=== PATIENT | female | born 1985 | race Caucasian/White ===

== ENCOUNTER 2024-11-18 01:24 | Emergency (ER) | payer MEDICAID, OTHER ==
[~2024-11-18] VITALS: Ht 154.9 cm; Wt 81.0 kg
[2024-11-18 01:24] VITALS: BP 130/63; RESP 18; TEMP 98.1; O2SAT 100
[2024-11-18 01:54] LABS: Nucleated Red Blood Cells % 0.0 %
[2024-11-18 01:56] LABS: Hematocrit 34.6 % (36.0-46.0); Hemoglobin 11.5 g/dL (12.2-16.2); Mean Corpuscular Hemoglobin 26.0 pg (28.0-32.0); Mean Corpuscular Volume 78.5 fL (80.0-100.0)
[2024-11-18 02:13] LABS: Alanine Aminotransferase 22 U/L (7-40); Albumin 4.6 g/dL (3.2-4.8); Alkaline Phosphatase 103 U/L (46-116); Anion Gap 8 (5-15); BUN/Creatinine Ratio 21.1 (10.0-20.0); Blood Urea Nitrogen 12 mg/dL (9-23); Calcium 9.8 mg/dL (8.7-10.4); Carbon Dioxide 28 mmol/L (20-31); Chloride 105 mmol/L (98-107); Lipase 43 U/L (12-53); Potassium 3.6 mmol/L (3.5-5.1); Sodium 141 mmol/L (136-145); Total Protein 7.1 g/dL (5.7-8.2)
[2024-11-18 02:14] LABS: Bilirubin, Total 0.2 mg/dL (0.2-1.0); Glucose 113 mg/dL (74-106)
--- NOTE | 2024-11-18 02:44 | ED.PDOC ---
HPI Comments Patient states she started having midepigastric pain at approximate 12:30 a.m.. States the pain started to radiate to her back. Says the pain was so intense that started to take her breath away. States the pain is sharp in nature. Nothing makes it better, nothing makes it worse. States the last thing she ate was a banana. No prior cardiac history. States no new foods no new medications. Patient denies any fever chills denies any cough. Chief Complaint: Chest Pain Time Seen by MD: 01:33 Reviewed Notes: Nurses Notes Allergies: Coded Allergies: NO KNOWN ALLERGIES (Unverified , 11/18/24) Home Meds Active Scripts Omeprazole (Gnp Omeprazole) 20 Mg Tab, 1 TAB PO DAILY, #30 TAB 0 Refills Prov:MIKE HENNESSY 11/18/24 Information Source: Patient Mode of Arrival: Ambulatory Past Medical History PAST MEDICAL HISTORY: Denies Surgical History: Denies all surgeries JEWEL SORTER History: No Pertinent JEWEL SORTER History Constitutional: denies: chills, diaphoresis, fatigue, fever, malaise, sweats, weakness, others EENTM: denies: blurred vision, double vision, ear bleeding, ear discharge, ear drainage, ear pain, ear ringing, eye pain, eye redness, hearing loss, mouth pain, mouth swelling, nasal discharge, nose bleeding, nose congestion, nose pain, photophobia, tearing, throat pain, throat swelling, voice changes, others Respiratory: denies: cough, hemoptysis, orthopnea, SOB at rest, shortness of breath, SOB with excertion, stridor, wheezing, others Cardiovascular: reports: chest pain; denies: dizzy spells, diaphoresis, Dyspnea on exertion, edema, irregular heart beat, left arm pain, lightheadedness, palpitations, PND, syncope, others Gastrointestinal: reports: abdominal pain; denies: abdomen distended, blood streaked bowels, constipated, diarrhea, dysphagia, difficulty swallowing, hematemesis, melena, nausea, poor appetite, poor fluid intake, rectal bleeding, rectal pain, vomiting, others Genitourinary: denies: abnormal vagina bleeding, burning, dyspareunia, dysuria, flank pain, frequency, hematuria, incontinence, pain, , vagina discharge, urgency, others Neurological: denies: dizziness, fainting, headache, left sided numbness, left sided weakness, numbness, paresthesia, pre-existing deficit, right sided numbness, right sided weakness, seizure, speech problems, tingling, tremors, weakness, others Musculoskeletal: denies: back pain, gout, joint pain, joint swelling, muscle pain, muscle stiffness, neck pain, others Integumetry: denies: bruises, change in color, change in hair/nails, dryness, laceration, lesions, lumps, rash, wounds, others Allergic/Immunocompromised: denies: Difficulty Healing, Frequent Infections, Hives, Itching, others Hematologic/Lymphatic: denies: anemia, blood clots, easy bleeding, easy bruising, swollen glands, others Physical Exam General Appearance: No Apparent Distress, Normal HEENT: Normal ENT Inspection, Pharynx Normal, TMs Normal Neck: Full Range of Motion, Non-Tender, Normal, Normal Inspection Respiratory: Chest Non-Tender, Lungs Clear, No Accessory Muscle Use, No Respiratory Distress, Normal Breath Sounds Cardiovascular: No Edema, No JVD, No Murmur, No Gallop, Normal Peripheral Pulses, Regular Rate/Rhythm Breast Exam: Deferred Gastrointestinal: Epigastric (Tender to palpation, no rebound/guarding noted. No other tenderness to abdomen appreciated), No Organomegaly, No Pulsatile Mass, Normal Bowel Sounds, Soft Genitalia: Deferred Pelvic: Deferred Rectal: Deferred Extremities: No calf tenderness, Normal capillary refill, Normal inspection, Normal range of motion, Non-tender, No pedal edema Musculoskeletal : Apperance: Normal Neurologic: Alert, airline customer service agent II-XII nml as Tested, No Motor Deficits, Normal Affect, Normal Mood, No Sensory Deficits Cerebellar Function: Normal Reflexes: Normal Skin: Dry, Normal Color, Warm Lymphatic: No Adenopathy EKG EKG : Pulse Rate (adult): 67 Cardiac Rhythm: NSR (SR) Was a procedure done? Was a procedure done?: No CP Differential Dx Differential Diagnosis: A-Flutter, Angina, Anxiety / Panic Attack Differential Diagnosis: Esophageal reflux/spasm, Gastritis, Other (Cholecystitis) X-Ray, Labs, Meds, VS Vital Signs Date Time Temp Pulse Resp B/P (MAP) Pulse Ox O2 Delivery O2 Flow Rate FiO2 11/18/24 05:38 67 11/18/24 01:31 67 7/23/25 01:24 98.1 69 18 130/63 (85) 100 98.1 Lab Test 11/18/24 04:00 11/18/24 01:39 Range/Units Urine Color Light-yellow Yellow Urine Clarity Clear Clear Urine pH 5.5 5.0-9.0 Urine Specific [place] 1.030 1.001-1.035 Urine Protein 1+ H Negative Urine Ketones Negative Negative Urine Blood Negative Negative /uL Urine Nitrite Negative Negative Urine Bilirubin Negative Negative Urine Urobilinogen Normal Negative mg/dL Urine Leukocyte Esterase Negative Negative /uL Urine RBC None seen 0 - 4 /hpf Urine Microscopic WBC 1 0-5 /HPF Urine Squamous Epithelial Cells Few <5 /hpf Urine Bacteria None seen None Seen /hpf Urine Mucus Few None Seen Urine Glucose Normal Normal mg/dL Urine Test Negative Negative White Blood Count 13.1 H 4.4-10.8 10^3/uL Red Blood Count 4.41 4.0-5.20 10^6/uL Hemoglobin 11.5 L 12.2-16.2 g/dL Hematocrit 34.6 L 36.0-46.0 % Mean Corpuscular Volume 78.5 L 80.0-100.0 fL Mean Corpuscular Hemoglobin 26.0 L 28.0-32.0 pg Mean Corpuscular Hemoglobin Concent 33.1 32.0-36.0 g/dL Red Cell Distribution Width 16.1 H 11.8-14.3 % Platelet Count 267 140-450 10^3/uL Mean Platelet Volume 9.3 6.9-10.8 fL Neutrophils (%) (Auto) 53.3 37.0-80.0 % Lymphocytes (%) (Auto) 35.9 10.0-50.0 % Monocytes (%) (Auto) 5.7 0.0-12.0 % Eosinophils (%) (Auto) 4.1 0.0-7.0 % Basophils (%) (Auto) 1.0 0.0-2.0 % Neutrophils # (Auto) 7.0 1.6-8.6 10 ^3/uL Lymphocytes # (Auto) 4.7 0.4-5.4 10 ^3/uL Monocytes # (Auto) 0.7 0-1.3 10 ^3/uL Eosinophils # (Auto) 0.5 0-0.8 10 ^3/uL Basophils # (Auto) 0.1 0-0.2 10 ^3/uL Nucleated Red Blood Cells 0.0 % Sodium Level 141 136-145 mmol/L Potassium Level 3.6 3.5-5.1 mmol/L Chloride Level 105 98-107 mmol/L Carbon Dioxide Level 28 20-31 mmol/L Anion Gap 8 5-15 Blood Urea Nitrogen 12 9-23 mg/dL Creatinine 0.57 0.550-1.02 mg/dL Glomerular Filtration Rate Calc 118 >90 mL/min BUN/Creatinine Ratio 21.1 H 10.0-20.0 Serum Glucose 113 H 74-106 mg/dL Calcium Level 9.8 8.7-10.4 mg/dL Total Bilirubin 0.2 0.2-1.0 mg/dL Aspartate Amino Transferase (AST) 35 13-40 U/L Alanine Aminotransferase (ALT) 22 7-40 U/L Alkaline Phosphatase 103 46-116 U/L Troponin I High Sensitivity < 3 L </=34 ng/L Total Protein 7.1 5.7-8.2 g/dL Albumin 4.6 3.2-4.8 g/dL Lipase 43 12-53 U/L PATIENT: INES BUSTAMANTEACCT: [id number]: [id number] : 1985 LOC: ER ROOM / BED: / AGE / SEX: 39 / F ADM STATUS: REG ER SERVICE 0140 ORDERING PHYSICIAN: TEODORA AVITIA PROCEDURE(s): ABPL - CT AB PEL WO CON-NO ORAL OR IV REASON: epigastric pain ORDER NUMBER(s): [id number], ACCESSION NUMBER(s): [id number] EXAM: CT Abdomen and Pelvis Without Intravenous Contrast CLINICAL INDICATION: Pain TECHNIQUE: Axial computed tomography images of the abdomen and pelvis without intravenous contrast. This CT exam was performed using one or more of the following dose reduction techniques: automated exposure control, adjustment of the mA and/or kV according to patient size, and/or use of iterative reconstruction technique. COMPARISON: No relevant prior studies available. FINDINGS: LUNG BASES: Unremarkable. No mass. No consolidation. ABDOMEN: LIVER: Hepatomegaly with fatty infiltration. GALLBLADDER AND BILE DUCTS: Cholelithiasis. No ductal dilation. PANCREAS: Unremarkable. No ductal dilation. SPLEEN: Unremarkable. No splenomegaly. ADRENALS: Unremarkable. No mass. KIDNEYS AND URETERS: Unremarkable. No stones within either kidney. No hydronephrosis. STOMACH AND BOWEL: Fecal retention in the colon consistent with constipation. No obstruction. No mucosal thickening. PELVIS: APPENDIX: No findings to suggest acute appendicitis. BLADDER: Unremarkable. No stones. REPRODUCTIVE: 3.4 cm hypodense lesion right adnexa, likely an ovarian cyst. ABDOMEN and PELVIS: INTRAPERITONEAL SPACE: Unremarkable. No free air. No significant fluid collection. BONES/JOINTS: No acute fracture. No dislocation. SOFT TISSUES: Umbilical hernia containing fat. VASCULATURE: Unremarkable. No abdominal aortic aneurysm. LYMPH NODES: Unremarkable. No enlarged lymph nodes. IMPRESSION: 1. 3.4 cm hypodense lesion right adnexa, likely an ovarian cyst. 2. Hepatomegaly with fatty infiltration. 3. Cholelithiasis. 4. Fecal retention in the colon consistent with constipation. 5. Umbilical hernia containing fat. 6. No obstructive uropathy. ATED BY: OLIMPIA WILLS MD DICTATED DATE/TIME: 11/18/24503 SIGNED BY: OLIMPIA WILLS MD SIGNED DATE/TIME: 11/18/24503 CC: CBC reviewed-WBC 13.1 CMP reviewed without any significant abnormalities Troponin reviewed-normal Lipase reviewed-normal Urine reviewed-negative Urinalysis reviewed without any significant abnormalities EKG reviewed CT abdomen/pelvis without contrast reviewed Patient had improvement in symptoms, tolerating p.o. intake well, vitals stable, well appearing and denied any pain prior to discharge Diet education discussed Advised to follow up with PCP and tack puller in 1-2 days Patient verbalized understanding and agreeable with current plan of care Advised to return to ER immediately if symptoms worsen Images Reviewed?: Images reviewed and evaluated by me Time of 1ST Reevaluation: 02:42 Reevaluation 1ST: Unchanged Time of 2ND Reevaluation: 05:22 Reevaluation 2ND: Improved Patient Education/Counseling: Diagnosis, Treatment, Prognosis, Need For Follow Up Assigned to Dr. shea SEPSIS Sepsis Screen Date sepsis recognized/suspect: Nov 18, 2024 Time Sepsis recognized/suspect: 0124 Recent Procedure: No On Antibiotic Therapy: No Respiratory Rate >20: No Heart Rate >90: No Temp<36 C (96.8 F) or >38.3 C: No SBP <90 or MAP <65 mmHG: No New Acute Mental Status Change: No Is the patient on CPAP, BIPAP,: No Physician Orders Ct Ab Pel Wo Con-No Oral Or Iv (11/18/24 01:40) Electrocardigram (11/18/24 14:53) Vital Signs Date Time Temp Pulse Resp B/P (MAP) Pulse Ox O2 Delivery O2 Flow Rate FiO2 11/18/24 05:38 67 11/18/24 01:31 67 11/18/24 01:24 98.1 69 18 130/63 (85) 100 98.1 Laboratory Tests Test 11/18/24 01:39 White Blood Count 13.1 10^3/uL (4.4-10.8) H Departure 1 Departure Time of Disposition: 05:24 Impression: Primary Impression: Gastritis Qualified Codes: K29.00 - Acute gastritis without bleeding Disposition: 01 HOME / SELF CARE / HOMELESS Condition: Stable e-Prescriptions Omeprazole (Gnp Omeprazole) 20 Mg Tab 1 TAB PO DAILY, #30 TAB 0 Refills Prov: MIKE HENNESSY 11/18/24 Discharged With: Self Critical Care Note Critical Care Time?: No Stability Stability form required: No Heart Score Heart Score: Heart Score Response (Comments) Value History Slightly Suspicious 0 EKG Normal 0 Age <45 0 Risk Factors No known risk factors 0 Troponin Normal limit 0 Total 0 TEODORA AVITIA Nov 18, 2024 02:44 MIKE HENNESSY Nov 18, 2024 05:27
[2024-11-18 04:23] LABS: Urine Protein, UAD 1+ (Negative)
--- NOTE | 2024-11-18 05:07 | DVH ---
EXAM: CT Abdomen and Pelvis Without Intravenous Contrast CLINICAL INDICATION: Pain TECHNIQUE: Axial computed tomography images of the abdomen and pelvis without intravenous contrast. This CT exam was performed using one or more of the following dose reduction techniques: automated exposure control, adjustment of the mA and/or kV according to patient size, and/or use of iterative r econstruction technique. COMPARISON: No relevant prior studies available. FINDINGS: LUNG BASES: Unremarkable. No mass. No consolidation. ABDOMEN: LIVER: Hepatomegaly with fatty infiltration. GALLBLADDER AND BILE DUCTS: Cholelithiasis. No ductal dilation. PANCREAS: Unremarkable. No ductal dilation. SPLEEN: Unremarkable. No splenomegaly. ADRENALS: Unremarkable. No mass. KIDNEYS AND URETERS: Unremarkable. No stones within either kidney. No hydronephrosis. STOMACH AND BOWEL: Fecal retention in the colon consistent with constipation. No obstruction. No m ucosal thickening. PELVIS: APPENDIX: No findings to suggest acute appendicitis. BLADDER: Unremarkable. No stones. REPRODUCTIVE: 3.4 cm hypodense lesion right adnexa, likely an ovarian cyst. ABDOMEN and PELVIS: INTRAPERITONEAL SPACE: Unremarkable. No free air. No significant fluid collection. BONES/JOINTS: No acute fracture. No dislocation. SOFT TISSUES: Umbilical hernia containing fat. VASCULATURE: Unremarkable. No abdominal aortic aneurysm. LYMPH NODES: Unremarkable. No enlarged lymph nodes. IMPRESSION: 1. 3.4 cm hypodense lesion right adnexa, likely an ovarian cyst. 2. Hepatomegaly with fatty infiltration. 3. Cholelithiasis. 4. Fecal retention in the colon consistent with constipation. 5. Umbilical hernia containing fat. 6. No obstructive uropathy.
[2024-11-18] MEDS ORDERED: OMEP20TA PO (05:25)
[2024-11-18 05:38] VITALS: PULSE 67
--- NOTE | 2024-11-18 14:54 | ECG ---
[facility] Test Date: 2024-11-18 Test Time: 01:31:18 Pat Name: INES MUIR Department: ER Room: Gender: F Flight Attendant/Inflight Manager: SANJU : 1985 Requested By: MIKE HENNESSY Order Number: [id number] Reading MD: Yang Lowe Measurements Intervals [place] Rate: 67 P: 1 IA: 146 QRS: 47 QRSD: 102 T: 22 QT: 387 QTc: 409 Interpretive Statements Sinus rhythm RSR' in V1 or V2, right VCD or RVH Electronically Signed On 11-18-2024 17:02:50 PDT by Yang Lowe Please click the below link to view image of tracing.
== END 2024-11-18 05:42 | disposition home or self-care (01) ==
LOC: ER 01:24
DX: K29.70 Gastritis, unspecified, without bleeding (principal)
CPT/HCPCS: 36415; 74176; 80053; 81001; 81025; 83690; 84484; 85025; 93005

== ENCOUNTER 2024-12-12 03:47 | Inpatient (IN) | payer MEDICAID ==
[2024-12-12] VITALS (9 sets, daily range): BP systolic 105–125; BP diastolic 57–80; PULSE 59–65; RESP 15–18; TEMP 97.6–98.1; O2SAT 98–100
[~2024-12-12] VITALS: Ht 154.9 cm; Wt 85.9 kg
[~2024-12-12 03:47] MED LIST: OMEP20TA PO
--- NOTE | 2024-12-12 04:19 | ED.PDOC ---
GI ASSESSMENT HPI Comments 39-year-old female came to ER for abdominal pain. Patient does have history of gallstones. States about 2 hours ago she developed sudden onset sharp, constant epigastric abdominal pain, radiating to her back, associated with bouts of nausea and vomiting. Patient denies any history of abdominal surgeries Chief Complaint: Abdominal Pain Time Seen by MD: 04:19 Reviewed Notes: Nurses Notes Allergies: Coded Allergies: NO KNOWN ALLERGIES (Unverified , 11/18/24) Home Meds Active Scripts Omeprazole (Gnp Omeprazole) 20 Mg Tab, 1 TAB PO DAILY, #30 TAB 0 Refills Prov:MIKE HENNESSY 11/18/24 Information Source: Patient Mode of Arrival: Ambulatory Timing: Hours Duration: Since onset Quality: Sharp, Stabbing Vomitus: Watery Stool: Normal Severity: Moderate Recent: None Recent Hx of: None Pain Location: Epigastric Associated sign and symptoms: Nausea, Vomiting, Abdominal Pain Past Medical History PAST MEDICAL HISTORY: Gallstones Surgical History: Denies all surgeries SOFTWARE TEST ANALYST History: No Pertinent SOFTWARE TEST ANALYST History Constitutional: denies: chills, diaphoresis, fatigue, fever, malaise, sweats, weakness, others EENTM: denies: blurred vision, double vision, ear bleeding, ear discharge, ear drainage, ear pain, ear ringing, eye pain, eye redness, hearing loss, mouth pain, mouth swelling, nasal discharge, nose bleeding, nose congestion, nose pain, photophobia, tearing, throat pain, throat swelling, voice changes, others Respiratory: denies: cough, hemoptysis, orthopnea, SOB at rest, shortness of breath, SOB with excertion, stridor, wheezing, others Cardiovascular: denies: chest pain, dizzy spells, diaphoresis, Dyspnea on exertion, edema, irregular heart beat, left arm pain, lightheadedness, pal pitations, PND, syncope, others Gastrointestinal: reports: abdominal pain, nausea, vomiting; denies: abdomen distended, blood streaked bowels, constipated, diarrhea, dysphagia, difficulty swallowing, hematemesis, melena, poor appetite, poor fluid intake, rectal bleeding, rectal pain, others Genitourinary: denies: abnormal vagina bleeding, burning, dyspareunia, dysuria, flank pain, frequency, hematuria, incontinence, pain, , vagina discharge, urgency, others Neurological: denies: dizziness, fainting, headache, left sided numbness, left sided weakness, numbness, paresthesia, pre-existing deficit, right sided numbness, right sided weakness, seizure, speech problems, tingling, tremors, weakness, others Musculoskeletal: denies: back pain, gout, joint pain, joint swelling, muscle pain, muscle stiffness, neck pain, others Integumetry: denies: bruises, change in color, change in hair/nails, dryness, laceration, lesions, lumps, rash, wounds, others Allergic/Immunocompromised: denies: Difficulty Healing, Frequent Infections, Hives, Itching, others Hematologic/Lymphatic: denies: anemia, blood clots, easy bleeding, easy bruising, swollen glands, others Endocrine: denies: excessive hunger, excessive sweating, excessive thirst, excessive urination, flushing, intolerance to cold, intolerance to heat, unexplained weight gain, unexplained weight loss, others Psychiatric: denies: anxiety, bipolar disorder, depression, hopeless, panic disorder, schizophrenia, sleepless, suicidal, others Physical Exam General Appearance: No Apparent Distress, Normal HEENT: Normal ENT Inspection, Pharynx Normal, TMs Normal Neck: Full Range of Motion, Non-Tender, Normal, Normal Inspection Respiratory: Chest Non-Tender, Lungs Clear, No Accessory Muscle Use, No Respiratory Distress, Normal Breath Sounds Cardiovascular: No Edema, No JVD, No Murmur, No Gallop, Normal Peripheral Pulses, Regular Rate/Rhythm Breast Exam: Deferred Gastrointestinal: No Organomegaly, Non Tender, No Pulsatile Mass, Normal Bowel Sounds, Soft Genitalia: Deferred Pelvic: Deferred Rectal: Deferred Extremities: No calf tenderness, Normal capillary refill, Normal inspection, Normal range of motion, Non-tender, No pedal edema Musculoskeletal : Apperance: Normal Neurologic: Alert, measurement specialist II-XII nml as Tested, No Motor Deficits, Normal Affect, Normal Mood, No Sensory Deficits Cerebellar Function: Normal Reflexes: Normal Skin: Dry, Normal Color, Warm Lymphatic: No Adenopathy Was a procedure done? Was a procedure done?: No GI differential Dx Differential Diagnosis: Cholecystitis, Diverticular disease, Gastritis/PUD, Gastroenteritis, Hernia, Pancreatitis, UTI, Urolithiasis X-Ray, Labs, Meds, VS Vital Signs Date Time Temp Pulse Resp B/P (MAP) Pulse Ox O2 Delivery O2 Flow Rate FiO2 12/12/24 06:00 97.4 67 15 111/64 (80) 99 97.4 12/12/24 05:40 64 15 118/64 12/12/24 05:10 70 12 120/53 12/12/24 04:55 Room Air* 0 21 12/12/24 04:55 97.4 70 12 120/53 (75) 99 97.4 12/12/24 03:55 73 12/12/24 03:49 97.6 73 18 133/67 100 97.6 Lab Test 12/12/24 05:18 12/12/24 04:00 Range/Units Troponin I High Sensitivity < 3 L < 3 L </=34 ng/L White Blood Count 13.6 H 4.4-10.8 10^3/uL Red Blood Count 4.38 4.0-5.20 10^6/uL Hemoglobin 11.2 L 12.2-16.2 g/dL Hematocrit 34.7 L 36.0-46.0 % Mean Corpuscular Volume 79.3 L 80.0-100.0 fL Mean Corpuscular Hemoglobin 25.6 L 28.0-32.0 pg Mean Corpuscular Hemoglobin Concent 32.3 32.0-36.0 g/dL Red Cell Distribution Width 16.2 H 11.8-14.3 % Platelet Count 245 140-450 10^3/uL Mean Platelet Volume 9.5 6.9-10.8 fL Neutrophils (%) (Auto) 67.1 37.0-80.0 % Lymphocytes (%) (Auto) 23.9 10.0-50.0 % Monocytes (%) (Auto) 4.8 0.0-12.0 % Eosinophils (%) (Auto) 3.5 0.0-7.0 % Basophils (%) (Auto) 0.7 0.0-2.0 % Neutrophils # (Auto) 9.1 H 1.6-8.6 10 ^3/uL Lymphocytes # (Auto) 3.2 0.4-5.4 10 ^3/uL Monocytes # (Auto) 0.7 0-1.3 10 ^3/uL Eosinophils # (Auto) 0.5 0-0.8 10 ^3/uL Basophils # (Auto) 0.1 0-0.2 10 ^3/uL Nucleated Red Blood Cells 0.1 % Sodium Level 140 136-145 mmol/L Potassium Level 3.6 3.5-5.1 mmol/L Chloride Level 106 98-107 mmol/L Carbon Dioxide Level 26 20-31 mmol/L Anion Gap 8 5-15 Blood Urea Nitrogen 8 L 9-23 mg/dL Creatinine 0.75 0.550-1.02 mg/dL Glomerular Filtration Rate Calc 104 >90 mL/min BUN/Creatinine Ratio 10.7 10.0-20.0 Serum Glucose 124 H 74-106 mg/dL Calcium Level 9.2 8.7-10.4 mg/dL Total Bilirubin 0.3 0.2-1.0 mg/dL Aspartate Amino Transferase (AST) 81 H 13-40 U/L Alanine Aminotransferase (ALT) 37 7-40 U/L Alkaline Phosphatase 101 46-116 U/L Total Protein 7.2 5.7-8.2 g/dL Albumin 4.8 3.2-4.8 g/dL Lipase 42 12-53 U/L Current Medications Medications (Trade) Dose Ordered Sig/Kasia Route Start Time Stop Time Status Last Admin Ondansetron HCl (Zofran) 4 mg ONCE ONCE IV 12/12/24 04:15 12/12/24 04:18 DC 12/12/24 04:40 Hydromorphone HCl (Dilaudid Injection) 1 mg ONCE ONCE IV 12/12/24 04:15 12/12/24 04:18 DC 12/12/24 05:10 Ketorolac Tromethamine (Toradol Injection) 15 mg ONCE ONCE IV 12/12/24 04:30 12/12/24 04:31 DC 12/12/24 04:39 Sodium Chloride 1,000 ml @ 1,000 mls/hr Q1H ONCE IV 12/12/24 04:30 12/12/24 05:29 DC 12/12/24 04:40 X-Ray, Labs, Meds, VS Comment This 39-year-old female presents secondary abdominal pain. CT shows possible early cholecystitis. Patient will car her further workup including HIDA scan. Patient will be admitted for further workup management of her likely cholecystitis. Time of 1ST Reevaluation: 04:09 Reevaluation 1ST: Unchanged Patient Education/Counseling: Diagnosis, Treatment Family Education/Counseling: No Family Present SEPSIS Sepsis Screen Physician Orders Electrocardigram (12/12/24 04:07) Urinalysis (12/12/24 04:10) Ct Ab Pel Wo Con-No Oral Or Iv (12/12/24 05:22) Gallbladder (12/12/24 05:56) Vital Signs Date Time Temp Pulse Resp B/P (MAP) Pulse Ox O2 Delivery O2 Flow Rate FiO2 12/12/24 06:00 97.4 67 15 111/64 (80) 99 97.4 12/12/24 05:40 64 15 118/64 12/12/24 05:10 70 12 120/53 12/12/24 04:55 Room Air* 0 21 12/12/24 04:55 97.4 70 12 120/53 (75) 99 97.4 12/12/24 03:55 73 12/12/24 03:49 97.6 73 18 133/67 100 97.6 Laboratory Tests Test 12/12/24 04:00 White Blood Count 13.6 10^3/uL (4.4-10.8) H Medications Medications Dose Ordered Sig/Kasia Route Start Time Stop Time Status Last Admin Dose Admin Hydromorphone HCl 1 mg ONCE ONCE IV 12/12/24 04:15 12/12/24 04:18 DC 12/12/24 05:10 Ketorolac Tromethamine 15 mg ONCE ONCE IV 12/12/24 04:30 12/12/24 04:31 DC 12/12/24 04:39 Ondansetron HCl 4 mg ONCE ONCE IV 12/12/24 04:15 12/12/24 04:18 DC 12/12/24 04:40 Sodium Chloride 1,000 ml @ 1,000 mls/hr Q1H ONCE IV 12/12/24 04:30 12/12/24 05:29 DC 12/12/24 04:40 Departure 1 Departure Time of Disposition: 06:56 Impression: Primary Impression: Cholecystitis Disposition: 09 ADMITTED INPATIENT Admit to: Med Surg Condition: Fair Critical Care Note Critical Care Time?: No Stability Stability form required: No Heart Score Heart Score: Heart Score Response (Comments) Value History N/A 0 EKG N/A 0 Age N/A 0 Risk Factors N/A 0 Troponin N/A 0 Total 0 I personally scribed for TOMAS GARNICA MD ([email or web address]) on 12/12/24 at 04:19. Electronically submitted by Bob Simpson ([email or web address]). TOMAS GARNICA MD Dec 12, 2024 04:19 KHARI RAMIREZ MD Dec 12, 2024 06:57
[2024-12-12] MEDS: KETOROLAC TROMETH 30 MG/ML 1ML VIAL IV ONE (04:39)
[2024-12-12 04:40] LABS: Hematocrit 34.7 % (36.0-46.0); Hemoglobin 11.2 g/dL (12.2-16.2); Mean Corpuscular Hemoglobin 25.6 pg (28.0-32.0)
[2024-12-12] MEDS: SODIUM CHLORIDE 0.9% 1,000 ML IV ONE (04:40)
[2024-12-12] MEDS: ONDANSETRON HCL 4 MG/2 ML VIAL IV ONE (04:40)
[2024-12-12 04:42] LABS: Mean Corpuscular Volume 79.3 fL (80.0-100.0); Nucleated Red Blood Cells % 0.1 %
[2024-12-12 04:56] LABS: Alanine Aminotransferase 37 U/L (7-40); Alkaline Phosphatase 101 U/L (46-116); Anion Gap 8 (5-15); BUN/Creatinine Ratio 10.7 (10.0-20.0); Calcium 9.2 mg/dL (8.7-10.4); Carbon Dioxide 26 mmol/L (20-31); Chloride 106 mmol/L (98-107); Potassium 3.6 mmol/L (3.5-5.1); Sodium 140 mmol/L (136-145); Total Protein 7.2 g/dL (5.7-8.2)
[2024-12-12 04:57] LABS: Albumin 4.8 g/dL (3.2-4.8); Bilirubin, Total 0.3 mg/dL (0.2-1.0); Blood Urea Nitrogen 8 mg/dL (9-23); Glucose 124 mg/dL (74-106)
[2024-12-12 05:08] LABS: Lipase 42 U/L (12-53)
[2024-12-12] MEDS: HYDROmorphone HCL 2 MG/ML VL/or syr IV ONE (05:10)
[2024-12-12] MEDS: IOHEXOL 300 MG/ML 100ML BOTTLE IJ ONE (05:26)
--- NOTE | 2024-12-12 06:40 | DVH ---
EXAM: CT CT AB PEL WO CON-NO ORAL OR IV HISTORY: abdominal pain COMPARISON: CT CT AB PEL WO CON-NO ORAL OR IV on DOS: 11/18/24 TECHNIQUE: Helical CT images of the abdomen and pelvis were performed without IV contrast. Sagittal a nd coronal reformatted images were obtained. This CT exam was performed using one or more of the foll owing dose reduction techniques: Automated exposure control, adjustment of the mA and/or kv according to patient size, or the use of iterative reconstruction techniques. Radiation Dose: Abdomen/Pelvis: CTDIvol 18.98 mGy, DLP 1199.48 mGy*cm. FINDINGS: CT abdomen: The lung bases are clear. The heart is borderline enlarged. 3.9 cm lamellated gallstone i s identified in the gallbladder lumen. The gallbladder is hydropic, measuring 4 cm width x 10.7 cm le ngth. The liver measures 21 cm longitudinal. The noncontrast spleen, pancreas, kidneys, and adrenal g lands are unremarkable. No abdominal aortic aneurysm. CT pelvis: No abnormal bowel dilatation, free air, or free fluid. The appendix and urinary bladder ar e unremarkable. There is mild lumbar degenerative disc disease. There is a lumbosacral transitional vertebrae. IMPRESSION: 1. Cholelithiasis with gallbladder hydrops which may indicate acute cholecystitis. 2. Hepatomegaly. 3. No evidence of bowel obstruction, acute appendicitis, or other acute process in the abdomen or pel vis.
--- NOTE | 2024-12-12 07:48 | DVH ---
US GALLBLADDER HISTORY: RUQ pain COMPARISON: 12/12 TECHNIQUE: Transverse and longitudinal grayscale and color sonographic images were obtained of the ab domen. FINDINGS: Liver: - Size: 18.8 cm - Echogenicity: Hyperechoic - Surface Contour: Smooth - Liver Lesion(s): None - Portal Vein: Patent and forward flowing. - Bile Ducts: Normal. The common bile duct measures 4.6 mm. Gallbladder: Gallstone with distended gallbladder. The sonographic bryan sign is negative. Pancreas: Portions not obscured by bowel gas are normal. Kidneys: - Right kidney size: 11.0 cm. There is no hydronephrosis, renal calculi, or mass lesion. Aorta and Inferior Vena Cava: The visualized portions of the abdominal aorta and intrahepatic vena ca va are normal. Other: None IMPRESSION: Cholelithiasis with gallbladder distention. Hepatic steatosis.
--- NOTE | 2024-12-12 09:25 | DVHHPRES ---
History of Present Illness Resident Creating Document: EVA ROY RESIDENT History of Present Illness Ms Batista is a 39-year-old female with past medical history of cholelithiasis who presented to the ER with a chief complaint of severe intractable epigastric pain radiating to the back in the right shoulder starting typing checker 12/12, patient was also experiencing nausea and vomited 3 times, nonbloody, yellowish in color. Denies fever and chills, recent travel or any sick contacts. She had similar pain a month before when she came to visit the ER. Patient denies any chest pain/diarrhea or constipation/weight loss Past medical history: Cholelithiasis Past surgical history: None Home medications: None PCP: Dr. Mcgraw Allergic history: None Social history: Lives with in gravity, denies smoking/drinking/drug use Patient seen and examined in the ER. Has right upper quadrant mild tenderness. Surgical consultation, NPO, IV Zosyn started. Family History: None Smoke: No ALCOHOL: none Drugs: None Lives: with Family Review of Systems Gastrointestinal: Nausea, Vomiting, Abdominal Pain Allergies: Coded Allergies: NO KNOWN ALLERGIES (Unverified , 11/18/24) Exam Vital Signs Vital Signs Date Time Temp Pulse Resp B/P (MAP) Pulse Ox O2 Delivery O2 Flow Rate FiO2 12/12/24 09:00 97.7 54 15 105/61 (76) 99 97.7 12/12/24 04:55 Room Air* 0 21 General Appearance: Alert, Oriented X3, Cooperative, No acute distress HEENT: Atraumatic Respiratory: Clear to auscultation, Normal air movement Cardiovascular: Regular rate, Normal S1, Normal S2, No murmurs Abdominal: Normal bowel sounds, Soft, Other (Right upper quadrant tenderness) Extremities: No edema, Normal pulses, No tenderness/swelling Skin: No rashes, No breakdown Neuro: Normal gait, Normal speech, Strength at 5/5 X4 ext Psych/Mental Status: Mental status NL, Mood NL Labs/Xrays Labs Test 12/12/24 05:18 12/12/24 04:00 Range/Units Troponin I High Sensitivity < 3 L </=34 ng/L White Blood Count 13.6 H 4.4-10.8 10^3/uL Red Blood Count 4.38 4.0-5.20 10^6/uL Hemoglobin 11.2 L 12.2-16.2 g/dL Hematocrit 34.7 L 36.0-46.0 % Mean Corpuscular Volume 79.3 L 80.0-100.0 fL Mean Corpuscular Hemoglobin 25.6 L 28.0-32.0 pg Mean Corpuscular Hemoglobin Concent 32.3 32.0-36.0 g/dL Red Cell Distribution Width 16.2 H 11.8-14.3 % Platelet Count 245 140-450 10^3/uL Mean Platelet Volume 9.5 6.9-10.8 fL Neutrophils (%) (Auto) 67.1 37.0-80.0 % Lymphocytes (%) (Auto) 23.9 10.0-50.0 % Monocytes (%) (Auto) 4.8 0.0-12.0 % Eosinophils (%) (Auto) 3.5 0.0-7.0 % Basophils (%) (Auto) 0.7 0.0-2.0 % Neutrophils # (Auto) 9.1 H 1.6-8.6 10 ^3/uL Lymphocytes # (Auto) 3.2 0.4-5.4 10 ^3/uL Monocytes # (Auto) 0.7 0-1.3 10 ^3/uL Eosinophils # (Auto) 0.5 0-0.8 10 ^3/uL Basophils # (Auto) 0.1 0-0.2 10 ^3/uL Nucleated Red Blood Cells 0.1 % Sodium Level 140 136-145 mmol/L Potassium Level 3.6 3.5-5.1 mmol/L Chloride Level 106 98-107 mmol/L Carbon Dioxide Level 26 20-31 mmol/L Anion Gap 8 5-15 Blood Urea Nitrogen 8 L 9-23 mg/dL Creatinine 0.75 0.550-1.02 mg/dL Glomerular Filtration Rate Calc 104 >90 mL/min BUN/Creatinine Ratio 10.7 10.0-20.0 Serum Glucose 124 H 74-106 mg/dL Calcium Level 9.2 8.7-10.4 mg/dL Total Bilirubin 0.3 0.2-1.0 mg/dL Aspartate Amino Transferase (AST) 81 H 13-40 U/L Alanine Aminotransferase (ALT) 37 7-40 U/L Alkaline Phosphatase 101 46-116 U/L Total Protein 7.2 5.7-8.2 g/dL Albumin 4.8 3.2-4.8 g/dL Lipase 42 12-53 U/L SEPSIS Sepsis Screen Date sepsis recognized/suspect: Dec 12, 2024 Time Sepsis recognized/suspect: 454 Recent Procedure: No On Antibiotic Therapy: No Respiratory Rate >20: No Heart Rate >90: No Temp<36 C (96.8 F) or >38.3 C: No SBP <90 or MAP <65 mmHG: No New Acute Mental Status Change: No Is the patient on CPAP, BIPAP,: No Physician Orders Electrocardigram (12/12/24 04:07) Urinalysis (12/12/24 04:10) Ct Ab Pel Wo Con-No Oral Or Iv (12/12/24 05:22) Gallbladder (12/12/24 05:56) Vital Signs Date Time Temp Pulse Resp B/P (MAP) Pulse Ox O2 Delivery O2 Flow Rate FiO2 12/12/24 09:00 97.7 54 15 105/61 (76) 99 97.7 12/12/24 06:00 97.4 67 15 111/64 (80) 99 97.4 12/12/24 05:40 64 15 118/64 12/12/24 05:10 70 12 120/53 12/12/24 04:55 Room Air* 0 21 12/12/24 04:55 97.4 70 12 120/53 (75) 99 97.4 12/12/24 03:55 73 12/12/24 03:49 97.6 73 18 133/67 100 97.6 Laboratory Tests Test 12/12/24 04:00 White Blood Count 13.6 10^3/uL (4.4-10.8) H Medications Medications Dose Ordered Sig/Kasia Route Start Time Stop Time Status Last Admin Dose Admin Hydromorphone HCl 1 mg ONCE ONCE IV 12/12/24 04:15 12/12/24 04:18 DC 12/12/24 05:10 1 MG Ketorolac Tromethamine 15 mg ONCE ONCE IV 12/12/24 04:30 12/12/24 04:31 DC 12/12/24 04:39 15 MG Ondansetron HCl 4 mg ONCE ONCE IV 12/12/24 04:15 12/12/24 04:18 DC 12/12/24 04:40 4 MG Sodium Chloride 1,000 ml @ 1,000 mls/hr Q1H ONCE IV 12/12/24 04:30 12/12/24 05:29 DC 12/12/24 04:40 1,000 MLS/HR Assessment/Plan Assessment/Plan Acute calculous cholecystitis History of cholelithiasis IV Zosyn q.6 hourly IV LR 1 L Pain management with morphine and [place] Avoid ketorolac Surgical consultation pending CT shows cholelithiasis with gallbladder hydrops which may indicate acute cholecystitis. IV pantoprazole 40 mg daily Blood culture, lactic acid pending Anemia, mild, likely iron-deficiency Monitor Type and screen PT/PTT pending Transaminitis likely nonalcoholic liver disease Monitor Obesity A1c ordered, dietary and lifestyle modifications recommended DVT prophylaxis: Ambulatory Plan discussed with patient, in the ER in which all questions have been answered Goals of care discussed for more than 17 minutes, full code status Case discussed with Dr. Connolly Plan discussed with: Patient, Spouse Date of Service: Dec 12, 2024 Billing Provider: LESLY CONNOLLY MD Common Visit Codes: [id number] INP/OBS CARE (HIGH) EVA ROY RESIDENT Dec 12, 2024 09:25 LESLY CONNOLLY MD Dec 15, 2024 18:27
[2024-12-12] MEDS ORDERED: KETOROLAC TROMETH 30 MG/ML 1ML VIAL IV PRN (09:30)
[2024-12-12 09:49] LABS: Urine Protein, UAD 1+ (Negative)
[2024-12-12] MEDS: LACTATED RINGER'S 1,000 ML IV ONE (09:54)
[2024-12-12] MEDS: PANTOPRAZOLE 40 MG/10 ML VIAL INJ IV SCH (09:57)
[2024-12-12] MEDS ORDERED: ACETAMINOPHEN 500 MG TAB or CAP PO PRN (10:00)
--- NOTE | 2024-12-12 11:03 | DVHINCON2 ---
Date of service: Dec 12, 2024 Allergies: Coded Allergies: NO KNOWN ALLERGIES (Unverified , 11/18/24) Home Meds Active Scripts Omeprazole (Gnp Omeprazole) 20 Mg Tab, 1 TAB PO DAILY, #30 TAB 0 Refills Prov:MIKE HENNESSY 11/18/24 Current Medications Current Medications Medications (Trade) Dose Ordered Sig/Kasia Route PRN Reason Start Time Stop Time Status Last Admin Ketorolac Tromethamine (Toradol Injection) 15 mg Q6HPRN PRN IV SEVERE PAIN (7-10 PAIN SCALE) 12/12/24 09:30 12/12/24 09:57 DC Pantoprazole Sodium (Protonix) 40 mg DAILY IV 12/12/24 10:00 12/12/24 09:57 Piperacillin Sod/ Tazobactam Sod 100 ml @ 25 mls/hr Q6HR IV 12/12/24 12:00 Acetaminophen (Tylenol Tablet Or Capsule) 500 mg Q4HPRN PRN PO MILD PAIN (1-3 PAIN SCALE) 12/12/24 10:00 Acetaminophen/ Hydrocodone Bitart ([place] 5/325MG Tab) 1 tab Q6HPRN PRN PO MODERATE PAIN (4-6 PAIN SCALE) 12/12/24 10:00 Morphine Sulfate 1 mg Q4HPRN PRN IV SEVERE PAIN (7-10 PAIN SCALE) 12/12/24 10:00 Vital Signs Vital Signs Date Time Temp Pulse Resp B/P (MAP) Pulse Ox O2 Delivery O2 Flow Rate FiO2 12/12/24 09:00 65 16 100 Room Air* 0 21 12/12/24 09:00 97.7 105/61 (76) 97.7 Labs/Diagnostic Data Labs Test 12/12/24 10:12 12/12/24 09:35 12/12/24 05:18 12/12/24 04:00 Range/Units Urine Color Yellow Yellow Urine Clarity Ex.turbid Clear Urine pH 6.0 5.0-9.0 Urine Specific [place] 1.029 1.001-1.035 Urine Protein 1+ H Negative Urine Ketones Negative Negative Urine Blood Negative Negative /uL Urine Nitrite Negative Negative Urine Bilirubin Negative Negative Urine Urobilinogen Normal Negative mg/dL Urine Leukocyte Esterase Trace Negative /uL Urine RBC 4 0 - 4 /hpf Urine Microscopic WBC 15 H 0-5 /HPF Urine Squamous Epithelial Cells Few <5 /hpf Urine Bacteria Few H None Seen /hpf Urine Mucus Few None Seen Urine Glucose Normal Normal mg/dL Hemoglobin A1c 5.5 <5.7 % A1C Magnesium Level 1.7 1.6-2.6 mg/dL C-Reactive Protein High Sensitivity 0.92 <1.0 mg/dL Thyroid Stimulating Hormone (TSH) 1.44 0.55-4.78 uIU/mL White Blood Count 13.6 H 4.4-10.8 10^3/uL Red Blood Count 4.38 4.0-5.20 10^6/uL Hemoglobin 11.2 L 12.2-16.2 g/dL Hematocrit 34.7 L 36.0-46.0 % Mean Corpuscular Volume 79.3 L 80.0-100.0 fL Mean Corpuscular Hemoglobin 25.6 L 28.0-32.0 pg Mean Corpuscular Hemoglobin Concent 32.3 32.0-36.0 g/dL Red Cell Distribution Width 16.2 H 11.8-14.3 % Platelet Count 245 140-450 10^3/uL Mean Platelet Volume 9.5 6.9-10.8 fL Neutrophils (%) (Auto) 67.1 37.0-80.0 % Lymphocytes (%) (Auto) 23.9 10.0-50.0 % Monocytes (%) (Auto) 4.8 0.0-12.0 % Eosinophils (%) (Auto) 3.5 0.0-7.0 % Basophils (%) (Auto) 0.7 0.0-2.0 % Neutrophils # (Auto) 9.1 H 1.6-8.6 10 ^3/uL Lymphocytes # (Auto) 3.2 0.4-5.4 10 ^3/uL Monocytes # (Auto) 0.7 0-1.3 10 ^3/uL Eosinophils # (Auto) 0.5 0-0.8 10 ^3/uL Basophils # (Auto) 0.1 0-0.2 10 ^3/uL Nucleated Red Blood Cells 0.1 % Sodium Level 140 136-145 mmol/L Potassium Level 3.6 3.5-5.1 mmol/L Chloride Level 106 98-107 mmol/L Carbon Dioxide Level 26 20-31 mmol/L Anion Gap 8 5-15 Blood Urea Nitrogen 8 L 9-23 mg/dL Creatinine 0.75 0.550-1.02 mg/dL Glomerular Filtration Rate Calc 104 >90 mL/min BUN/Creatinine Ratio 10.7 10.0-20.0 Serum Glucose 124 H 74-106 mg/dL Calcium Level 9.2 8.7-10.4 mg/dL Total Bilirubin 0.3 0.2-1.0 mg/dL Aspartate Amino Transferase (AST) 81 H 13-40 U/L Alanine Aminotransferase (ALT) 37 7-40 U/L Alkaline Phosphatase 101 46-116 U/L Total Protein 7.2 5.7-8.2 g/dL Albumin 4.8 3.2-4.8 g/dL Lipase 42 12-53 U/L Assessment PATIENT IS A 39 YEAR OLD FEMALE WITH PREVIOUSLY ESTABLISHED DIAGNOSIS OF CHOLELITHIASIS ADMITTED THIS TIME WITH SEVERE UPPER RIGHT ABDOMINAL PAIN RADIATING TO MID BACK AND RIGHT SHOULDER, ABDOMEN OIS NON TENDER, NON DISTENDED, RADIOGRAPHIC DIAGNOSIS OF CHOLECYSTITIS IS REPORTED BASED ON HYDROPS OF GALLBLADDER, HER WBC IS ELEVATED, .COAGS AND PREG TESTS ARE PENDING. OPERATION, RISKS AND COMPLICATIONS EXPLAINED IN DETAIL Plan discussed with: Patient RAN JEAN MD Dec 12, 2024 11:03
[2024-12-12 11:07] LABS: INR 0.97 (0.9-1.15); Partial Thromboplastin Time 24.8 SEC (24.5-34.5); Prothrombin Time 10.3 sec (9.3-11.8)
[2024-12-12] MEDS: PIPERACILLIN-TAZOB 3.375GM 100 ML IV SCH (12:31)
[2024-12-12] MEDS: HYDROcodone-ACET 5/325MG TAB PO PRN (12:31)
[2024-12-12 14:37] LABS: Amphetamine Screen, Urine Neg (NEGATIVE); Barbiturate Scree,Urine Neg (NEGATIVE); Benzodiazephine Screen, Urine Neg (NEGATIVE); Cocaine Screen, Urine Neg (NEGATIVE); Opiate Scree,Urine Neg (NEGATIVE); Phencyclidine Screen, Urine Neg (NEGATIVE)
[2024-12-12 14:38] LABS: Cannabinoid Screen, Urine Neg (NEGATIVE)
[2024-12-12] MEDS: MORPHINE SULFATE INJ 2 MG/ml SYRG IV PRN (14:54)
[2024-12-13] VITALS (7 sets, daily range): BP systolic 90–124; BP diastolic 50–74; PULSE 60–66; RESP 17–20; TEMP 97.4–98.1; O2SAT 96–100
[2024-12-13 07:26] LABS: Hemoglobin 10.8 g/dL (12.2-16.2); Nucleated Red Blood Cells % 0.0 %
[2024-12-13 07:28] LABS: Hematocrit 32.7 % (36.0-46.0); Mean Corpuscular Hemoglobin 26.3 pg (28.0-32.0); Mean Corpuscular Volume 79.7 fL (80.0-100.0)
[2024-12-13 07:31] LABS: INR 0.98 (0.9-1.15); Partial Thromboplastin Time 24.8 SEC (24.5-34.5); Prothrombin Time 10.4 sec (9.3-11.8)
[2024-12-13 07:40] LABS: Alkaline Phosphatase 100 U/L (46-116); Anion Gap 9 (5-15); BUN/Creatinine Ratio 10.6 (10.0-20.0); Calcium 8.9 mg/dL (8.7-10.4); Carbon Dioxide 27 mmol/L (20-31); Chloride 107 mmol/L (98-107); Glucose 96 mg/dL (74-106); Potassium 3.8 mmol/L (3.5-5.1); Sodium 143 mmol/L (136-145); Total Protein 6.4 g/dL (5.7-8.2)
[2024-12-13 07:41] LABS: Albumin 4.2 g/dL (3.2-4.8); Bilirubin, Total 0.4 mg/dL (0.2-1.0)
[2024-12-13 07:47] LABS: Alanine Aminotransferase 139 U/L (7-40); Blood Urea Nitrogen 7 mg/dL (9-23)
--- NOTE | 2024-12-13 09:42 | DVHPN2 ---
Progress Note Date Seen: Dec 13, 2024 Medical Necessity Reason Pt with a Central, PICC or Fol: No Objective vital signs Vital Sign Date Time Temp Pulse Resp B/P (MAP) Pulse Ox O2 Delivery O2 Flow Rate FiO2 12/13/24 07:30 61 18 100 Room Air* 0 21 12/13/24 05:17 97.5 90/50 (63) 97.5 Total Intake and Output 12/12/24 12/12/24 12/13/24 15:00 23:00 07:00 Intake Total 0 ml 900 ml Output Total 500 ml Balance -500 ml 0 ml 900 ml medications Current Medications Medications Dose Ordered Sig/Kasia Route Start Time Stop Time Status Last Admin Dose Admin Pantoprazole Sodium 40 mg DAILY IV 12/12/24 10:00 12/12/24 09:57 40 MG Piperacillin Sod/ Tazobactam Sod 100 ml @ 25 mls/hr Q6HR IV 12/12/24 12:00 12/13/24 06:00 25 MLS/HR Acetaminophen 500 mg Q4HPRN PRN PO 12/12/24 10:00 Acetaminophen/ Hydrocodone Bitart 1 tab Q6HPRN PRN PO 12/12/24 10:00 12/12/24 22:54 1 TAB Morphine Sulfate 1 mg Q4HPRN PRN IV 12/12/24 10:00 12/12/24 14:54 1 MG laboratory and microbiology Laboratory Tests 12/13/24 06:06 Test 12/13/24 06:06 Range/Units Serum Glucose 96 74-106 mg/dL Problem List/Assessment/Plan Problem List/Assessment/Plan 12/13/24 PAIN IMPROVED, ALL QUESTIONS ANSWERED, OPERATION AND RISKS AND COMPLICATIONS EXPLAINED ONCE AGAIN Plan discussed with: Patient RAN JEAN MD Dec 13, 2024 09:41
--- NOTE | 2024-12-13 13:02 | DVHPN2 ---
Reviewed: Care Plan, H&P, Labs, Medications, Previous Orders, Radiology Changes from previous H/P or p: No Changes Gastrointestinal: Nausea, Vomiting, Abdominal Pain Objective Vitals Vital Signs Date Time Temp Pulse Resp B/P (MAP) Pulse Ox O2 Delivery O2 Flow Rate FiO2 12/13/24 09:00 97.9 60 20 105/57 (73) 99 97.9 12/13/24 07:30 Room Air* 0 21 Intake/Output Intake and Output 12/13/24 07:00 Intake Total 900 ml Output Total 500 ml Balance 400 ml Intake Oral 800 ml IV Total 100 ml Output Urine Total 500 ml # Voids 4 Medications Current Medications Medications Dose Ordered Sig/Kasia Route Start Time Stop Time Status Last Admin Dose Admin Pantoprazole Sodium 40 mg DAILY IV 12/12/24 10:00 12/13/24 11:59 40 MG Piperacillin Sod/ Tazobactam Sod 100 ml @ 25 mls/hr Q6HR IV 12/12/24 12:00 12/13/24 11:59 25 MLS/HR Acetaminophen 500 mg Q4HPRN PRN PO 12/12/24 10:00 Acetaminophen/ Hydrocodone Bitart 1 tab Q6HPRN PRN PO 12/12/24 10:00 12/12/24 22:54 1 TAB Morphine Sulfate 1 mg Q4HPRN PRN IV 12/12/24 10:00 12/12/24 14:54 1 MG Laboratory Results Laboratory Tests 12/13/24 06:06 Chemistry Test 12/13/24 06:06 Albumin 4.2 g/dL (3.2-4.8) Calcium Level 8.9 mg/dL (8.7-10.4) Total Protein 6.4 g/dL (5.7-8.2) Coagulation Test 12/13/24 06:06 Prothrombin Time 10.4 sec (9.3-11.8) Prothrombin Time INR 0.98 (0.9-1.15) Activated Partial Thromboplast Time 24.8 SEC (24.5-34.5) LFT Test 12/13/24 06:06 Alanine Aminotransferase (ALT) 139 U/L (7-40) H Alkaline Phosphatase 100 U/L (46-116) Aspartate Amino Transferase (AST) 105 U/L (13-40) H Total Bilirubin 0.4 mg/dL (0.2-1.0) Urinalysis Test 12/12/24 09:35 Urine Color Yellow (Yellow) Urine Clarity Ex.turbid (Clear) Urine pH 6.0 (5.0-9.0) Urine Specific [place] 1.029 (1.001-1.035) Urine Protein 1+ (Negative) H Urine Ketones Negative (Negative) Urine Blood Negative /uL (Negative) Urine Nitrite Negative (Negative) Urine Bilirubin Negative (Negative) Urine Urobilinogen Normal mg/dL (Negative) Urine Leukocyte Esterase Trace /uL (Negative) Urine RBC 4 /hpf (0 - 4) Urine Microscopic WBC 15 /HPF (0-5) H Urine Squamous Epithelial Cells Few /hpf (<5) Urine Bacteria Few /hpf (None Seen) H Urine Mucus Few (None Seen) Urine Glucose Normal mg/dL (Normal) Labs and/or images reviewed: Labs reviewed by me, Image(s) reviewed by me Assessment/Plan Assessment/Plan Acute right upper quadrant abdominal pain Cholelithiasis with acute cholecystitis: Dr. Harrison planning for lap rosy: Max Hahtaway Acute dehydration: IV fluids MAGALYS Pepe at bed side. Plan discussed with: Patient Date of Service: Dec 13, 2024 Billing Provider: RICARDA EDWARD MD Common Visit Codes: [id number] INP/OBS CARE(HIGH) RICARDA EDWARD MD Dec 13, 2024 13:02
[2024-12-14] VITALS (8 sets, daily range): BP systolic 111–128; BP diastolic 64–84; PULSE 60–74; RESP 16–19; TEMP 96.7–98.4; O2SAT 93–99
[2024-12-14] MEDS: PIPERACILLIN-TAZOB 3.375GM 100 ML IV SCH (01:37)
[2024-12-14] MEDS ORDERED: MIDAZOLAM HCL 2MG/2ML 2ml VIAL (1mg/ml) ONE (07:50)
[2024-12-14] MEDS ORDERED: HYDROmorphone HCL 2 MG/ML VL/or syr ONE (07:50)
[2024-12-14] MEDS ORDERED: PROPOFOL 10 MG/ML 20 ML IV ONE (07:50)
[2024-12-14] MEDS ORDERED: LIDOCAINE 2% (LOCAL ANESTH.) PF 5ml SDV ONE (07:50)
[2024-12-14] MEDS ORDERED: ONDANSETRON HCL 4 MG/2 ML VIAL ONE (07:50)
[2024-12-14] MEDS ORDERED: PHENYLEPHRINE HCL 10 MG/ML VL ONE (07:50)
[2024-12-14] MEDS ORDERED: ROCURONIUM 10MG/ML 10ML VIAL IV ONE (07:50)
[2024-12-14] MEDS ORDERED: GLYCOPYRROLATE 0.2 MG/ML 1ML VIAL ONE (07:50)
[2024-12-14] MEDS ORDERED: fentaNYL CITRATE 100 MCG/2 ML VL ONE (07:50)
[2024-12-14] MEDS ORDERED: KETOROLAC TROMETH 30 MG/ML 1ML VIAL ONE (07:50)
[2024-12-14] MEDS: ceFAZolin 2 GM/D5W50ml 50 ML IV ONE (08:19)
[2024-12-14] MEDS: LIDOCAINE 1%-Mpf/Epinephrine 1:200,000 30ml VIAL ONE (08:57)
[2024-12-14] MEDS: BUPIVACAINE 0.5% MPF INJ 30ML SDV IJ ONE (08:57)
[2024-12-14] MEDS ORDERED: SUGAMMADEX 200mg/2ml Vial (100MG/ML) IV ONE (09:14)
--- NOTE | 2024-12-14 09:27 | DVHPN2 ---
Reviewed: Care Plan, H&P, Labs, Medications, Previous Orders, Radiology Changes from previous H/P or p: No Changes Gastrointestinal: Nausea, Vomiting, Abdominal Pain Objective Vitals Vital Signs Date Time Temp Pulse Resp B/P (MAP) Pulse Ox O2 Delivery O2 Flow Rate FiO2 12/14/24 05:00 97.9 65 17 121/73 (89) 97 97.9 12/13/24 20:00 Room Air* 0 21 Intake/Output Intake and Output 12/14/24 07:00 Intake Total 1410 ml Balance 1410 ml Intake Oral 1110 ml IV Total 300 ml # Voids 6 Medications Current Medications Medications Dose Ordered Sig/Kasia Route Start Time Stop Time Status Last Admin Dose Admin Pantoprazole Sodium 40 mg DAILY IV 12/12/24 10:00 12/13/24 11:59 40 MG Acetaminophen 500 mg Q4HPRN PRN PO 12/12/24 10:00 Acetaminophen/ Hydrocodone Bitart 1 tab Q6HPRN PRN PO 12/12/24 10:00 12/13/24 18:23 1 TAB Morphine Sulfate 1 mg Q4HPRN PRN IV 12/12/24 10:00 12/12/24 14:54 1 MG Piperacillin Sod/ Tazobactam Sod 100 ml @ 25 mls/hr Q8H IV 12/14/24 02:00 12/14/24 01:37 25 MLS/HR Laboratory Results Laboratory Tests 12/13/24 06:06 Urinalysis Test 12/12/24 09:35 Urine Color Yellow (Yellow) Urine Clarity Ex.turbid (Clear) Urine pH 6.0 (5.0-9.0) Urine Specific [place] 1.029 (1.001-1.035) Urine Protein 1+ (Negative) H Urine Ketones Negative (Negative) Urine Blood Negative /uL (Negative) Urine Nitrite Negative (Negative) Urine Bilirubin Negative (Negative) Urine Urobilinogen Normal mg/dL (Negative) Urine Leukocyte Esterase Trace /uL (Negative) Urine RBC 4 /hpf (0 - 4) Urine Microscopic WBC 15 /HPF (0-5) H Urine Squamous Epithelial Cells Few /hpf (<5) Urine Bacteria Few /hpf (None Seen) H Urine Mucus Few (None Seen) Urine Glucose Normal mg/dL (Normal) Microbiology Microbiology Date/Time Source Procedure Growth Status 12/12/24 13:38 Blood Blood Culture - Preliminary NO GROWTH AFTER 24 HOURS OF INCUBATION. Resulted Labs and/or images reviewed: Labs reviewed by me, Image(s) reviewed by me Assessment/Plan Assessment/Plan Acute right upper quadrant abdominal pain Cholelithiasis with acute cholecystitis: Status post lap rosy by Dr. Harrison 12/14/2024, continue Zosyn norco Acute dehydration: IV fluids MAGALYS Pepe at bed side. Plan discussed with: Patient Date of Service: Dec 14, 2024 Billing Provider: RICARDA EDWARD MD Common Visit Codes: [id number] INP/OBS CARE(HIGH) RICARDA EDWARD MD Dec 14, 2024 09:27
[2024-12-14] MEDS: ONDANSETRON HCL 4 MG/2 ML VIAL IV ONE (09:45)
--- NOTE | 2024-12-14 09:46 | DVHOP ---
DATE OF SURGERY: 12/14/2024 PREOPERATIVE DIAGNOSES: * Cholelithiasis. * Cholecystitis POSTOPERATIVE DIAGNOSES: * Cholelithiasis * Cholecystitis SURGEON: Joe Harrison MD FIRE OFFICER: Carlos Enrique Shay NP ANESTHESIA: General endotracheal. ANESTHESIOLOGIST: Dr. Steele PROCEDURES: * Laparoscopy * Laparoscopic cholecystectomy DESCRIPTION OF PROCEDURE: Under general endotracheal anesthesia with the patient's skin prepped and draped, 0.25% Marcaine and 0.5% lidocaine were injected into the skin at the proposed incision site. A supraumbilical incision was made and Veress needle inserted by the hanging drop technique into the peritoneal cavity in order to establish pneumoperitoneum to 15 mmHg pressure by insufflation with carbon dioxide. With the abdomen fully distended, the needle was removed and replaced with a 5-mm trocar port through which a 0-degree viewing laparoscope was inserted and under direct vision, a 5-mm port was inserted through the right anterior axillary line at the level of the umbilicus and a 10-mm port was inserted through the midline subxiphoid skin. Subsequently, instrumentation was introduced and laparoscopy was performed revealing no obvious unexpected pathology. The gallbladder was acutely and chronically inflamed. Adhesions between the omentum and the gallbladder was accomplished sharply and bluntly and the gallbladder was mobilized. The cystic duct and cystic artery were identified, circumferentially dissected, skeletonized, and traced into the hepatocystic triangle just to minimize the potential for inadvertent injury to the common bile duct. The cystic duct and cystic artery were divided between metallic clips close to the gallbladder, again attempting to avoid any inadvertent injury to the common bile duct with the cystic duct and cystic artery divided between metallic clips, the gallbladder was resected from the liver bed by electrocautery and traction. The fully mobilized gallbladder was then removed from the peritoneal cavity by placement in a specimen extraction bag, placed through the 10-mm port sites, and removed from the peritoneal cavity by extraction. Subhepatic space was irrigated. Irrigant was aspirated. A subhepatic Kelvin-Bates drain was placed underneath the right lobe of the liver and exteriorized through the 5-mm port site in the right flank, secured with a 2-0 nylon suture. The right upper quadrant was irrigated. Irrigant was aspirated. Inspection for hemostasis was accomplished and hemostasis was found to be complete at the port sites as well as in the hepatic bed of the gallbladder. Instrumentation was then withdrawn. Pneumoperitoneum was evacuated. Fascial defect was closed using #0 Vicryl. Wounds were approximated using 2-0 Monocryl sutures, Dermabond glue, and Steri-Strips. The patient remained stable throughout the procedure and left the operating room following an accurate needle and sponge count. The patient's was thoroughly informed by phone at [phone]. MD CRISTOBLA Chance/ALEXANDRU TID: [id number] RECEIPT: [id number]
[2024-12-14] MEDS: HYDROmorphone HCL 2 MG/ML VL/or syr IV PRN (09:55)
[2024-12-14] MEDS: HYDROmorphone HCL 2 MG/ML VL/or syr ONE (09:58)
[2024-12-14] MEDS: ACETAMINOPHEN IV 1000 MG/100ML (10MG/ML) IV ONE (10:09)
--- NOTE | 2024-12-14 10:26 | ECG ---
[facility] Test Date: 2024-12-12 Test Time: 03:55:00 Pat Name: INES MUIR Department: Room: 0220 A Gender: F Fiberglass Fabricator: THOMAS : 1985 Requested By: TOMAS GARNICA Order Number: [id number] Reading MD: Yang Lowe Measurements Intervals [place] Rate: 73 P: 14 CT: 138 QRS: 42 QRSD: 101 T: 23 QT: 387 QTc: 427 Interpretive Statements Sinus rhythm Electronically Signed On 12-14-2024 22:52:47 PDT by Yang Lowe Please click the below link to view image of tracing.
[2024-12-14] MEDS: D5W/SOD CHL 0.45%/KCL 20MEQ 1,000 ML IV SCH (10:55)
[2024-12-14] MEDS: ONDANSETRON HCL 4 MG/2 ML VIAL IV PRN (18:16)
[2024-12-15] VITALS (8 sets, daily range): BP systolic 94–124; BP diastolic 55–84; PULSE 63–77; RESP 17–18; TEMP 97.2–98.1; O2SAT 92–96
[2024-12-15 06:31] LABS: Hematocrit 30.2 % (36.0-46.0); Hemoglobin 10.0 g/dL (12.2-16.2); Mean Corpuscular Hemoglobin 26.1 pg (28.0-32.0); Mean Corpuscular Volume 79.2 fL (80.0-100.0); Nucleated Red Blood Cells % 0.0 %
--- NOTE | 2024-12-15 10:00 | DVHPN2 ---
Reviewed: Care Plan, H&P, Labs, Medications, Previous Orders, Radiology Changes from previous H/P or p: No Changes Gastrointestinal: Nausea, Vomiting, Abdominal Pain Objective Vitals Vital Signs Date Time Temp Pulse Resp B/P (MAP) Pulse Ox O2 Delivery O2 Flow Rate FiO2 12/15/24 08:50 97.9 63 17 102/57 (72) 95 97.9 12/15/24 08:00 Room Air* 0 21 Intake/Output Intake and Output 12/15/24 07:00 Intake Total 1930 ml Output Total 60 ml Balance 1870 ml Intake Oral 1630 ml IV Total 300 ml Drainage Total 60 ml # Voids 8 Medications Current Medications Medications Dose Ordered Sig/Kasia Route Start Time Stop Time Status Last Admin Dose Admin Pantoprazole Sodium 40 mg DAILY IV 12/12/24 10:00 12/14/24 11:30 40 MG Acetaminophen 500 mg Q4HPRN PRN PO 12/12/24 10:00 Acetaminophen/ Hydrocodone Bitart 1 tab Q6HPRN PRN PO 12/12/24 10:00 12/15/24 02:51 1 TAB Morphine Sulfate 1 mg Q4HPRN PRN IV 12/12/24 10:00 12/14/24 23:18 1 MG Piperacillin Sod/ Tazobactam Sod 100 ml @ 25 mls/hr Q8H IV 12/14/24 02:00 12/15/24 02:01 25 MLS/HR Potassium Chloride/Dextrose/ Sod Cl 1,000 ml @ 120 mls/hr Q8H20M IV 12/14/24 09:30 12/15/24 02:10 120 MLS/HR Ondansetron HCl 4 mg Q4HPRN PRN IV 12/14/24 09:30 12/14/24 23:18 4 MG Laboratory Results Laboratory Tests 12/13/24 06:06 12/15/24 05:34 LFT Test 12/15/24 05:34 Total Bilirubin 0.4 mg/dL (0.2-1.0) Urinalysis Test 12/12/24 09:35 Urine Color Yellow (Yellow) Urine Clarity Ex.turbid (Clear) Urine pH 6.0 (5.0-9.0) Urine Specific [place] 1.029 (1.001-1.035) Urine Protein 1+ (Negative) H Urine Ketones Negative (Negative) Urine Blood Negative /uL (Negative) Urine Nitrite Negative (Negative) Urine Bilirubin Negative (Negative) Urine Urobilinogen Normal mg/dL (Negative) Urine Leukocyte Esterase Trace /uL (Negative) Urine RBC 4 /hpf (0 - 4) Urine Microscopic WBC 15 /HPF (0-5) H Urine Squamous Epithelial Cells Few /hpf (<5) Urine Bacteria Few /hpf (None Seen) H Urine Mucus Few (None Seen) Urine Glucose Normal mg/dL (Normal) Microbiology Microbiology Date/Time Source Procedure Growth Status 12/12/24 13:38 Blood Blood Culture - Preliminary NO GROWTH AFTER 48 HOURS OF INCUBATION. Resulted Labs and/or images reviewed: Labs reviewed by me, Image(s) reviewed by me Assessment/Plan Assessment/Plan Acute right upper quadrant abdominal pain Cholelithiasis with acute cholecystitis: Status post lap rosy by Dr. Harrison 12/14/2024, continue Zosyn norco Acute dehydration: IV fluids MAGALYS Tiwari at bed side. Advanced diet as tolerated Possible DC on Saturday Plan discussed with: Patient Date of Service: Dec 15, 2024 Billing Provider: RICARDA EDWARD MD Common Visit Codes: [id number] INP/OBS CARE(HIGH) RICARDA EDWARD MD Dec 15, 2024 10:00
--- NOTE | 2024-12-15 10:12 | DVHPN2 ---
Progress Note Date Seen: Dec 15, 2024 Medical Necessity Reason Pt with a Central, PICC or Fol: No Objective vital signs Vital Sign Date Time Temp Pulse Resp B/P (MAP) Pulse Ox O2 Delivery O2 Flow Rate FiO2 12/15/24 10:06 65 16 103/66 12/15/24 08:50 97.9 95 97.9 12/15/24 08:00 Room Air* 0 21 Total Intake and Output 12/14/24 12/14/24 12/15/24 14:59 22:59 06:59 Intake Total 300 ml 830 ml 800 ml Output Total 35 ml 25 ml Balance 265 ml 805 ml 800 ml medications Current Medications Medications Dose Ordered Sig/Kasia Route Start Time Stop Time Status Last Admin Dose Admin Pantoprazole Sodium 40 mg DAILY IV 12/12/24 10:00 12/15/24 10:04 40 MG Acetaminophen 500 mg Q4HPRN PRN PO 12/12/24 10:00 Acetaminophen/ Hydrocodone Bitart 1 tab Q6HPRN PRN PO 12/12/24 10:00 12/15/24 02:51 1 TAB Morphine Sulfate 1 mg Q4HPRN PRN IV 12/12/24 10:00 12/15/24 10:06 1 MG Piperacillin Sod/ Tazobactam Sod 100 ml @ 25 mls/hr Q8H IV 12/14/24 02:00 12/15/24 10:03 25 MLS/HR Potassium Chloride/Dextrose/ Sod Cl 1,000 ml @ 120 mls/hr Q8H20M IV 12/14/24 09:30 12/15/24 02:10 120 MLS/HR Ondansetron HCl 4 mg Q4HPRN PRN IV 12/14/24 09:30 12/15/24 10:04 4 MG laboratory and microbiology Laboratory Tests 12/15/24 05:34 12/13/24 06:06 Test 12/13/24 06:06 Range/Units Serum Glucose 96 74-106 mg/dL Problem List/Assessment/Plan Problem List/Assessment/Plan 12/13/24 PAIN IMPROVED, ALL QUESTIONS ANSWERED, OPERATION AND RISKS AND COMPLICATIONS EXPLAINED ONCE AGAIN 12/15/24 patient was not in her room, No problems reported by nurse, wbc elevated, bilirubin normal, will advance diet, probably dc TOMORROW Plan discussed with: Other Dietary Evaluation Review Comments: Wt management Expected Outcomes/Goals: gradualwt loss RAN JEAN MD Dec 15, 2024 10:12
[2024-12-16 01:00] VITALS: BP 98/66; PULSE 70; RESP 18; TEMP 97.7; O2SAT 94
[2024-12-16 05:00] VITALS: BP 112/68; PULSE 71; RESP 18; TEMP 98; O2SAT 93
[2024-12-16 08:00] VITALS: PULSE 68; RESP 17; O2SAT 98
[2024-12-16 08:08] LABS: Hemoglobin 10.0 g/dL (12.2-16.2); Nucleated Red Blood Cells % 0.0 %
[2024-12-16 08:11] LABS: Hematocrit 31.0 % (36.0-46.0); Mean Corpuscular Hemoglobin 25.8 pg (28.0-32.0); Mean Corpuscular Volume 79.7 fL (80.0-100.0)
[2024-12-16 09:30] VITALS: BP 136/88; PULSE 68; RESP 17; TEMP 97.1; O2SAT 98
[2024-12-16 09:34] VITALS: BP 136/88; PULSE 68; RESP 17; TEMP 97.1; O2SAT 98
--- NOTE | 2024-12-16 10:30 | DVHPN2 ---
Reviewed: Care Plan, H&P, Labs, Medications, Previous Orders, Radiology Changes from previous H/P or p: No Changes Gastrointestinal: Nausea, Vomiting, Abdominal Pain Objective Vitals Vital Signs Date Time Temp Pulse Resp B/P (MAP) Pulse Ox O2 Delivery O2 Flow Rate FiO2 12/16/24 09:34 97.1 68 17 136/88 (104) 98 97.1 12/15/24 20:00 Room Air* 0 21 Intake/Output Intake and Output 12/16/24 07:00 Intake Total 2000 ml Output Total 70 ml Balance 1930 ml Intake Oral 1700 ml IV Total 300 ml Drainage Total 40 ml Other 30 ml # Voids 8 # Bowel Movements 1 Medications Current Medications Medications Dose Ordered Sig/Kasia Route Start Time Stop Time Status Last Admin Dose Admin Pantoprazole Sodium 40 mg DAILY IV 12/12/24 10:00 12/16/24 09:53 40 MG Acetaminophen 500 mg Q4HPRN PRN PO 12/12/24 10:00 Acetaminophen/ Hydrocodone Bitart 1 tab Q6HPRN PRN PO 12/12/24 10:00 12/16/24 01:46 1 TAB Morphine Sulfate 1 mg Q4HPRN PRN IV 12/12/24 10:00 12/15/24 10:06 1 MG Piperacillin Sod/ Tazobactam Sod 100 ml @ 25 mls/hr Q8H IV 12/14/24 02:00 12/16/24 09:54 25 MLS/HR Potassium Chloride/Dextrose/ Sod Cl 1,000 ml @ 120 mls/hr Q8H20M IV 12/14/24 09:30 12/16/24 03:10 120 MLS/HR Ondansetron HCl 4 mg Q4HPRN PRN IV 12/14/24 09:30 12/15/24 10:04 4 MG Laboratory Results Laboratory Tests 12/13/24 06:06 12/16/24 06:31 Urinalysis Test 12/12/24 09:35 Urine Color Yellow (Yellow) Urine Clarity Ex.turbid (Clear) Urine pH 6.0 (5.0-9.0) Urine Specific [place] 1.029 (1.001-1.035) Urine Protein 1+ (Negative) H Urine Ketones Negative (Negative) Urine Blood Negative /uL (Negative) Urine Nitrite Negative (Negative) Urine Bilirubin Negative (Negative) Urine Urobilinogen Normal mg/dL (Negative) Urine Leukocyte Esterase Trace /uL (Negative) Urine RBC 4 /hpf (0 - 4) Urine Microscopic WBC 15 /HPF (0-5) H Urine Squamous Epithelial Cells Few /hpf (<5) Urine Bacteria Few /hpf (None Seen) H Urine Mucus Few (None Seen) Urine Glucose Normal mg/dL (Normal) Microbiology Microbiology Date/Time Source Procedure Growth Status 12/12/24 13:38 Blood Blood Culture - Preliminary NO GROWTH AFTER 72 HOURS OF INCUBATION. Resulted Labs and/or images reviewed: Labs reviewed by me, Image(s) reviewed by me Assessment/Plan Assessment/Plan Acute right upper quadrant abdominal pain Cholelithiasis with acute cholecystitis: Status post lap rosy by Dr. Harrison 12/14/2024, continue Zosyn norco Acute dehydration: IV fluids MAGALYS Espinosa at bed side. Afebrile abdomen soft tolerating regular diet discharged home Plan discussed with: Patient Date of Service: Dec 16, 2024 Billing Provider: RICARDA EDWARD MD Common Visit Codes: [id number] INP/OBS CARE(HIGH) RICARDA EDWARD MD Dec 16, 2024 10:30
[2024-12-16] MEDS ORDERED: HYDR-4902 PO (10:32)
[2024-12-16] MEDS ORDERED: METR-344 PO (10:32)
[2024-12-16] MEDS ORDERED: LEVO500T91 PO (10:32)
--- NOTE | 2024-12-16 10:37 | DVHDS2 ---
Discharge Summary Date of Admission Dec 12, 2024 at 09:23 Date of Discharge: Dec 16, 2024 Admitting Diagnosis Right upper quadrant abdominal pain Wounds: Laparoscopic cholecystectomy Labs/Diagnostic Data: Laboratory Results Test 12/16/24 06:31 12/15/24 05:34 12/14/24 11:28 12/13/24 06:06 White Blood Count 11.8 10^3/uL (4.4-10.8) Red Blood Count 3.89 10^6/uL (4.0-5.20) Hemoglobin 10.0 g/dL (12.2-16.2) Hematocrit 31.0 % (36.0-46.0) Mean Corpuscular Volume 79.7 fL (80.0-100.0) Mean Corpuscular Hemoglobin 25.8 pg (28.0-32.0) Mean Corpuscular Hemoglobin Concent 32.4 g/dL (32.0-36.0) Red Cell Distribution Width 16.3 % (11.8-14.3) Platelet Count 216 10^3/uL (140-450) Mean Platelet Volume 9.6 fL (6.9-10.8) Neutrophils (%) (Auto) 56.0 % (37.0-80.0) Lymphocytes (%) (Auto) 34.6 % (10.0-50.0) Monocytes (%) (Auto) 5.8 % (0.0-12.0) Eosinophils (%) (Auto) 2.9 % (0.0-7.0) Basophils (%) (Auto) 0.7 % (0.0-2.0) Neutrophils # (Auto) 6.6 10 ^3/uL (1.6-8.6) Lymphocytes # (Auto) 4.1 10 ^3/uL (0.4-5.4) Monocytes # (Auto) 0.7 10 ^3/uL (0-1.3) Eosinophils # (Auto) 0.3 10 ^3/uL (0-0.8) Basophils # (Auto) 0.1 10 ^3/uL (0-0.2) Nucleated Red Blood Cells 0.0 % Total Bilirubin 0.4 mg/dL (0.2-1.0) Beta HCG, Quantitative 0.4 mIU/mL (1.5-4.2) Prothrombin Time 10.4 sec (9.3-11.8) Prothrombin Time INR 0.98 (0.9-1.15) Activated Partial Thromboplast Time 24.8 SEC (24.5-34.5) Sodium Level 143 mmol/L (136-145) Potassium Level 3.8 mmol/L (3.5-5.1) Chloride Level 107 mmol/L (98-107) Carbon Dioxide Level 27 mmol/L (20-31) Anion Gap 9 (5-15) Blood Urea Nitrogen 7 mg/dL (9-23) Creatinine 0.66 mg/dL (0.550-1.02) Glomerular Filtration Rate Calc 114 mL/min (>90) BUN/Creatinine Ratio 10.6 (10.0-20.0) Serum Glucose 96 mg/dL (74-106) Calcium Level 8.9 mg/dL (8.7-10.4) Aspartate Amino Transferase (AST) 105 U/L (13-40) Alanine Aminotransferase (ALT) 139 U/L (7-40) Alkaline Phosphatase 100 U/L (46-116) Total Protein 6.4 g/dL (5.7-8.2) Albumin 4.2 g/dL (3.2-4.8) Test 12/12/24 12:19 12/12/24 10:12 12/12/24 09:35 12/12/24 05:18 Lactic Acid Level 1.2 mmol/L (0.4-2.0) Troponin I High Sensitivity < 3 ng/L (</=34) Urine Color Yellow (Yellow) Urine Clarity Ex.turbid (Clear) Urine pH 6.0 (5.0-9.0) Urine Specific [place] 1.029 (1.001-1.035) Urine Protein 1+ (Negative) Urine Ketones Negative (Negative) Urine Blood Negative /uL (Negative) Urine Nitrite Negative (Negative) Urine Bilirubin Negative (Negative) Urine Urobilinogen Normal mg/dL (Negative) Urine Leukocyte Esterase Trace /uL (Negative) Urine RBC 4 /hpf (0 - 4) Urine Microscopic WBC 15 /HPF (0-5) Urine Squamous Epithelial Cells Few /hpf (<5) Urine Bacteria Few /hpf (None Seen) Urine Mucus Few (None Seen) Urine Glucose Normal mg/dL (Normal) Urine Opiates Screen Neg (NEGATIVE) Urine Fentanyl Screen Neg (NEGATIVE) Urine Barbiturates Screen Neg (NEGATIVE) Urine Phencyclidine Screen Neg (NEGATIVE) Urine Amphetamines Screen Neg (NEGATIVE) Urine Benzodiazepines Screen Neg (NEGATIVE) Urine Cocaine Screen Neg (NEGATIVE) Urine Cannabinoids Screen Neg (NEGATIVE) Hemoglobin A1c 5.5 % A1C (<5.7) Magnesium Level 1.7 mg/dL (1.6-2.6) C-Reactive Protein High Sensitivity 0.92 mg/dL (<1.0) Vitamin B12 Level 398 pg/mL (211-911) Vitamin D 25-Hydroxy 44.4 ng/mL (30.0-100) Thyroid Stimulating Hormone (TSH) 1.44 uIU/mL (0.55-4.78) Test 12/12/24 04:00 Lipase 42 U/L (12-53) Other Laboratory Tests 12/16/24 06:31 12/13/24 06:06 Brief Hx & Hospital Course: 39-year-old female admitted for right upper quadrant abdominal pain. Found to have gallstones with a cholecystitis underwent lap rosy by . Treated with the IV antibiotics IV fluids and pain medications postop course uneventful. At the time of discharge vital signs are stable afebrile abdomen is soft tolerating regular diet discharged home on Levaquin Flagyl and [place]. She will follow up with the surgeon in 10 days for removal of the drain. Consults/Reason for consult Surgeon Dr. Harrison Operations or Procedures Laparoscopic cholecystectomy CT abdomen pelvis without contrast Condition at Discharge: Fair Final Diagnosis/Problems List Acute right upper quadrant abdominal pain Cholelithiasis with acute cholecystitis: Status post lap rosy by Dr. Harrison 12/14/2024, continue Zosyn norco Acute dehydration: IV fluids Discharge Disposition: Home Discharge Instruct/Medications Diet: Regular Activity: Light activity Follow Up/Referral: Follow up with the surgeon Dr. Harrison in 10 days for drain removal Medications: Levaquin Flagyl [place] Transmitted to pharmacy Scheduled Levofloxacin Hemihydrate (Levaquin 500 Mg), 1 TAB PO DAILY Metronidazole (Flagyl), 1 TAB PO TID Omeprazole (Gnp Omeprazole), 1 TAB PO DAILY Scheduled PRN Hydrocodone-Acetaminophen (Hydrocodone Bitartrate/AC 5-325 mg), 1 TAB PO QID PRN 39 (Time taken for discharge summary 39 minutes) Discharge Statement: "Patient was advised to return to the ER or call 911 if any headaches, dizziness, shortness of breath, chest pain, abdominal pain, bleeding, fevers, or worsening of medical condition. Patient was counseled about treatment plan, medications, possible side effects, patientverbalized understanding. All questions were answered to the best of my ability. This discharge took greater then 30 minutes in planning, reviewing documentation, counseling the patient, and discussing with other team members." ASSESSMENT ASSESSMENT Hospital Course Uneventful Assessment Acute right upper quadrant abdominal pain Cholelithiasis with acute cholecystitis: Status post lap rosy by Dr. Harrison 12/14/2024, continue Zosyn lauren Acute dehydration: IV fluids Date of Service: Dec 16, 2024 Billing Provider: RICARDA EDWARD MD Common Visit Codes: [id number] DISCH DAY >30min RICARDA EDWARD MD Dec 16, 2024 10:37
[2024-12-16 11:24] VITALS: BP 136/88; PULSE 68; RESP 17; TEMP 99.1; O2SAT 99
== END 2024-12-16 12:45 | disposition home or self-care (01) | DRG 263 ==
LOC: ER 03:47 → OVERFLOW 09:23 → CENTRAL 16:31
PROVIDERS: ADMIT Family Medicine; ATTEND Family Medicine
PROC: 0FT44ZZ Resection of Gallbladder, Percutaneous Endoscopic Approach (ICD-10-PCS; principal; 2024-12-14 08:23)
DX: K80.00 Calculus of gallbladder with acute cholecystitis without obstruction (principal); K82.1 Hydrops of gallbladder; E66.9 Obesity, unspecified; Z68.36 Body mass index [BMI] 36.0-36.9, adult; E86.0 Dehydration; K66.0 Peritoneal adhesions (postprocedural) (postinfection); D50.9 Iron deficiency anemia, unspecified
CPT/HCPCS: 36415; 74176; 76705; 80053; 80307; 81001; 82247; 82306; 82607; 83036; 83605; 83690; 83735; 84443; 84484; 84702; 85025; 85610; 85730; 86141; 86850; 86900; 86901; 87040; 93005; 96361; 96374; 96375; G0378; J0131; J1100; J1885; J2003; J2250; J2405; J2470; J2543; J2704; J3490

== ENCOUNTER 2024-12-20 05:06 | Emergency (ER) | payer MEDICAID ==
[~2024-12-20] VITALS: Ht 154.9 cm; Wt 89.3 kg
[~2024-12-20 05:06] MED LIST changes: +HYDR-4902 PO; +LEVO500T91 PO; +METR-344 PO
[2024-12-20 05:08] VITALS: PULSE 71; RESP 22; TEMP 97.6; O2SAT 96
[2024-12-20 05:30] VITALS: BP 135/84
[2024-12-20] MEDS: fentaNYL CITRATE 100 MCG/2 ML VL IV ONE (05:30)
[2024-12-20] MEDS: ONDANSETRON HCL 4 MG/2 ML VIAL IV ONE (05:30)
--- NOTE | 2024-12-20 05:36 | ED.PDOC ---
GI ASSESSMENT HPI Comments 39-year-old female came to ER for abdominal pain. Patient underwent laparoscopic cholecystectomy last December 14 and tolerated procedure well. Patient woke up this morning, with sudden onset right upper quadrant abdominal pain, constant, nonradiating. Patient states pain feels like gallstone pain. Denies any nausea or vomiting. Chief Complaint: Abdominal Pain Time Seen by MD: 05:35 Reviewed Notes: Nurses Notes Allergies: Coded Allergies: NO KNOWN ALLERGIES (Unverified , 11/18/24) Home Meds Active Scripts Hydrocodone-Acetaminophen (Hydrocodone Bitartrate/AC 5-325 mg) 1 Tab Tab, 1 TAB PO QID PRN, #30 TAB Prov:RICARDA EDWARD MD 12/16/24 Metronidazole (Flagyl) 500 Mg Tab, 1 TAB PO TID, #30 TAB Prov:RICARDA EDWARD MD 12/16/24 Levofloxacin Hemihydrate (LEVAQUIN 500 MG) 500 Mg Tab, 1 TAB PO DAILY, #10 TAB Prov:RICARDA EDWARD MD 12/16/24 Omeprazole (Gnp Omeprazole) 20 Mg Tab, 1 TAB PO DAILY, #30 TAB 0 Refills Prov:MIKE HENNESSY 11/18/24 Information Source: Patient Mode of Arrival: Ambulatory Timing: Hours Duration: Since onset Quality: Sharp, Stabbing Vomitus: None Stool: Normal Severity: Moderate Recent: Recent Surgery Recent Hx of: Abdominal Operations, Ulcer Disease Pain Location: RUQ Associated sign and symptoms: Abdominal Pain Past Medical History PAST MEDICAL HISTORY: Gallstones, PUD Surgical History: Cholecystectomy MARKETING GRAPHICS SPECIALIST History: No Pertinent MARKETING GRAPHICS SPECIALIST History Social History Smoker: Non-Smoker Alcohol: Denies ETOH Use Drugs: Denies Drug Use Lives In: Home Constitutional: denies: chills, diaphoresis, fatigue, fever, malaise, sweats, weakness, others EENTM: denies: blurred vision, double vision, ear bleeding, ear discharge, ear drainage, ear pain, ear ringing, eye pain, eye redness, hearing loss, mouth pain, mouth swelling, nasal discharge, nose bleeding, nose congestion, nose pain, photophobia, tearing, throat pain, throat swelling, voice changes, others Respiratory: denies: cough, hemoptysis, orthopnea, SOB at rest, shortness of breath, SOB with excertion, stridor, wheezing, others Cardiovascular: denies: chest pain, dizzy spells, diaphoresis, Dyspnea on exertion, edema, irregular heart beat, left arm pain, lightheadedness, palpitations, PND, syncope, others Gastrointestinal: reports: abdominal pain; denies: abdomen distended, blood streaked bowels, constipated, diarrhea, dysphagia, difficulty swallowing, hematemesis, melena, nausea, poor appetite, poor fluid intake, rectal bleeding, rectal pain, vomiting, others Genitourinary: denies: abnormal vagina bleeding, burning, dyspareunia, dysuria, flank pain, frequency, hematuria, incontinence, pain, , vagina discharge, urgency, others Neurological: denies: dizziness, fainting, headache, left sided numbness, left sided weakness, numbness, paresthesia, pre-existing deficit, right sided numbness, right sided weakness, seizure, speech problems, tingling, tremors, weakness, others Musculoskeletal: denies: back pain, gout, joint pain, joint swelling, muscle pain, muscle stiffness, neck pain, others Integumetry: denies: bruises, change in color, change in hair/nails, dryness, laceration, lesions, lumps, rash, wounds, others Allergic/Immunocompromised: denies: Difficulty Healing, Frequent Infections, Hives, Itching, others Hematologic/Lymphatic: denies: anemia, blood clots, easy bleeding, easy bruising, swollen glands, others Endocrine: denies: excessive hunger, excessive sweating, excessive thirst, excessive urination, flushing, intolerance to cold, intolerance to heat, unexplained weight gain, unexplained weight loss, others Psychiatric: denies: anxiety, bipolar disorder, depression, hopeless, panic disorder, schizophrenia, sleepless, suicidal, others Physical Exam General Appearance: No Apparent Distress, Normal HEENT: Normal ENT Inspection, Pharynx Normal, TMs Normal Neck: Full Range of Motion, Non-Tender, Normal, Normal Inspection Respiratory: Chest Non-Tender, Lungs Clear, No Accessory Muscle Use, No Respiratory Distress, Normal Breath Sounds Cardiovascular: No Edema, No JVD, No Murmur, No Gallop, Normal Peripheral Pulses, Regular Rate/Rhythm Breast Exam: Deferred Gastrointestinal: No Organomegaly, No Pulsatile Mass, Normal Bowel Sounds, Soft, Tenderness, Other (Laparoscopy insertion sites are clean and dressed ) Genitalia: Deferred Pelvic: Deferred Rectal: Deferred Extremities: No calf tenderness, Normal capillary refill, Normal inspection, Normal range of motion, Non-tender, No pedal edema Musculoskeletal : Apperance: Normal Neurologic: Alert, lifestyle coordinator II-XII nml as Tested, No Motor Deficits, Normal Affect, Normal Mood, No Sensory Deficits Cerebellar Function: Normal Reflexes: Normal Skin: Dry, Normal Color, Warm Lymphatic: No Adenopathy Was a procedure done? Was a procedure done?: No GI differential Dx Differential Diagnosis: Gastritis/PUD, Gastroenteritis, Pancreatitis X-Ray, Labs, Meds, VS Vital Signs Date Time Temp Pulse Resp B/P (MAP) Pulse Ox O2 Delivery O2 Flow Rate FiO2 12/20/24 05:30 135/84 12/20/24 05:08 97.6 71 22 139/75 96 97.6 Lab Test 12/20/24 08:03 12/20/24 05:44 Range/Units Urine Test Negative Negative White Blood Count 18.7 #H 4.4-10.8 10^3/uL Red Blood Count 4.74 4.0-5.20 10^6/uL Hemoglobin 12.3 # 12.2-16.2 g/dL Hematocrit 38.2 # 36.0-46.0 % Mean Corpuscular Volume 80.8 80.0-100.0 fL Mean Corpuscular Hemoglobin 26.0 L 28.0-32.0 pg Mean Corpuscular Hemoglobin Concent 32.1 32.0-36.0 g/dL Red Cell Distribution Width 16.4 H 11.8-14.3 % Platelet Count 274 140-450 10^3/uL Mean Platelet Volume 9.5 6.9-10.8 fL Neutrophils (%) (Auto) 61.6 37.0-80.0 % Lymphocytes (%) (Auto) 27.2 10.0-50.0 % Monocytes (%) (Auto) 5.8 0.0-12.0 % Eosinophils (%) (Auto) 4.5 0.0-7.0 % Basophils (%) (Auto) 0.9 0.0-2.0 % Neutrophils # (Auto) 11.5 H 1.6-8.6 10 ^3/uL Lymphocytes # (Auto) 5.1 0.4-5.4 10 ^3/uL Monocytes # (Auto) 1.1 0-1.3 10 ^3/uL Eosinophils # (Auto) 0.8 0-0.8 10 ^3/uL Basophils # (Auto) 0.2 0-0.2 10 ^3/uL Nucleated Red Blood Cells 0.2 % Sodium Level 140 136-145 mmol/L Potassium Level 3.8 3.5-5.1 mmol/L Chloride Level 106 98-107 mmol/L Carbon Dioxide Level 22 20-31 mmol/L Anion Gap 12 5-15 Blood Urea Nitrogen 8 L 9-23 mg/dL Creatinine 0.70 0.550-1.02 mg/dL Glomerular Filtration Rate Calc 113 >90 mL/min BUN/Creatinine Ratio 11.4 10.0-20.0 Serum Glucose 122 H 74-106 mg/dL Calcium Level 9.2 8.7-10.4 mg/dL Total Bilirubin 0.3 0.2-1.0 mg/dL Aspartate Amino Transferase (AST) 24 13-40 U/L Alanine Aminotransferase (ALT) 46 H 7-40 U/L Alkaline Phosphatase 96 46-116 U/L Total Protein 7.5 5.7-8.2 g/dL Albumin 4.7 3.2-4.8 g/dL Lipase 31 12-53 U/L Current Medications Medications (Trade) Dose Ordered Sig/Kasia Route Start Time Stop Time Status Last Admin Fentanyl Citrate 25 mcg ONCE ONCE IV 12/20/24 05:30 12/20/24 05:31 DC 12/20/24 05:30 Ondansetron HCl (Zofran) 4 mg ONCE ONCE IV 12/20/24 05:30 12/20/24 05:31 DC 12/20/24 05:30 I took over patient's care from Dr. Novak at 6:00 a.m.. I was asked to follow up on CT results and lab results. At this time lab results demonstrates a leukocytosis of 18. However CT is still pending. Patient did not have a urine cup, patient has been given a urine cup by myself. However soon after when CT arrived to have CT performed, patient had eloped. I have called the patient multiple times including at 8:55 a.m. and also 5: 50 p.m. no answer either t rian. Unable to leave voicemail. I have advised charge nurse Walt regarding this critical result and to call the patient again to let her know over critical result of a leukocytosis of 19. [id number] Called patient to number listed unable to leave voice mail, no answer Time of 1ST Reevaluation: 05:32 Reevaluation 1ST: Unchanged Patient Education/Counseling: Diagnosis, Treatment Family Education/Counseling: Diagnosis, Treatment Comments I have provided rapid medical examination and initiated a workup for the patient. I will sign this patient out to Dr. Mendoza to continue the care of this patient SEPSIS Sepsis Screen Date sepsis recognized/suspect: Dec 20, 2024 Time Sepsis recognized/suspect: 0512 Recent Procedure: No On Antibiotic Therapy: No Respiratory Rate >20: No Heart Rate >90: No Temp<36 C (96.8 F) or >38.3 C: No SBP <90 or MAP <65 mmHG: No New Acute Mental Status Change: No Is the patient on CPAP, BIPAP,: No Vital Signs Date Time Temp Pulse Resp B/P (MAP) Pulse Ox O2 Delivery O2 Flow Rate FiO2 12/20/24 05:30 135/84 12/20/24 05:08 97.6 71 22 139/75 96 97.6 Laboratory Tests Test 12/20/24 05:44 White Blood Count 18.7 10^3/uL (4.4-10.8) #H Departure 1 Departure Time of Disposition: 08:53 Impression: Primary Impression: Postoperative pain Additional Impressions: Leucocytosis Qualified Codes: D72.828 - Other elevated white blood cell count Abdominal pain Qualified Codes: R10.84 - Generalized abdominal pain Disposition: 07 LEFT AWOL/ELOPED Condition: Poor Discharged With: Self Critical Care Note Critical Care Time?: No Stability Stability form required: No Heart Score Heart Score: Heart Score Response (Comments) Value History N/A 0 EKG N/A 0 Age N/A 0 Risk Factors N/A 0 Troponin N/A 0 Total 0 I personally scribed for NATALIE NOVAK MD ([email or web address]) on 12/20/24 at 05:36. Electronically submitted by Bob Simpson ([email or web address]). I personally scribed for NATALIE NOVAK MD ([email or web address]) on 12/20/24 at 08:56. Electronically submitted by Rajni Yoder ([email or web address]). NATALIE NOVAK MD Dec 20, 2024 05:36 ANNE MENDOZA MD Dec 20, 2024 17:55
[2024-12-20 06:01] LABS: Hematocrit 38.2 % (36.0-46.0); Hemoglobin 12.3 g/dL (12.2-16.2); Mean Corpuscular Hemoglobin 26.0 pg (28.0-32.0); Mean Corpuscular Volume 80.8 fL (80.0-100.0); Nucleated Red Blood Cells % 0.2 %
[2024-12-20 06:15] LABS: Albumin 4.7 g/dL (3.2-4.8); Alkaline Phosphatase 96 U/L (46-116); Anion Gap 12 (5-15); BUN/Creatinine Ratio 11.4 (10.0-20.0); Calcium 9.2 mg/dL (8.7-10.4); Carbon Dioxide 22 mmol/L (20-31); Chloride 106 mmol/L (98-107); Lipase 31 U/L (12-53); Potassium 3.8 mmol/L (3.5-5.1); Sodium 140 mmol/L (136-145); Total Protein 7.5 g/dL (5.7-8.2)
[2024-12-20 06:24] LABS: Alanine Aminotransferase 46 U/L (7-40); Blood Urea Nitrogen 8 mg/dL (9-23); Glucose 122 mg/dL (74-106)
[2024-12-20 06:25] LABS: Bilirubin, Total 0.3 mg/dL (0.2-1.0)
== END 2024-12-20 08:29 | disposition left against medical advice (07) ==
LOC: ER 05:10
DX: G89.18 Other acute postprocedural pain (principal); R10.11 Right upper quadrant pain; D72.829 Elevated white blood cell count, unspecified; Z79.899 Other long term (current) drug therapy; Z90.49 Acquired absence of other specified parts of digestive tract; Z87.11 Personal history of peptic ulcer disease
CPT/HCPCS: 36415; 80053; 81025; 83690; 85025; 96374; 96375; 99284; J2405; J3010